=== PATIENT | male | born 1950 | race Two or more races ===

== ENCOUNTER 2024-03-28 11:05 | Emergency (ER) | payer OTHER ==
[~2024-03-28] VITALS: Ht 172.7 cm; Wt 96.2 kg
[2024-03-28 12:20] LABS: HEMATOCRIT 40.7 % (39.0-48.0); HEMOGLOBIN 13.7 g/dL (13-16.00); MEAN CELL VOLUME 92.4 fL (80.0-100.00); MEAN CORPUSCULAR HEMOGLOBIN 31.1 pg (27.00-32.0); MEAN CORPUSCULAR HGB CONC 33.7 g/dl (32.0-36.0); PLATELET COUNT 305 K/uL (150-450); RED CELL DISTRIBUTION WIDTH 13.9 % (11.5-14.5)
[2024-03-28 12:40] LABS: INR 1.03; PARTIAL THROMBOPLASTIN TIME 26.3 SECONDS (22.0-34.0); PROTHROMBIN TIME 11.2 SECONDS (9.0-11.5)
[2024-03-28 12:42] LABS: CALCIUM 9.8 mg/dL (8.5-10.1); CREATININE SERUM 0.91 mg/dL (0.70-1.30); GFR 82.13; POTASSIUM 3.51 mEq/L (3.5-5.1)
== END 2024-03-28 15:14 | disposition home or self-care (01) ==
LOC: ER 11:07
PROVIDERS: General Practice
DX: R04.0 Epistaxis (principal); I11.0 Hypertensive heart disease with heart failure; I50.9 Heart failure, unspecified; J44.9 Chronic obstructive pulmonary disease, unspecified; J32.9 Chronic sinusitis, unspecified